=== PATIENT | male | born 1975 ===

== ENCOUNTER 2017-09-23 18:47 | Emergency (ER) | payer SELFPAY ==
[2017-09-23 20:49] LABS: Bilirubin,Urine NEG (Negative); Blood,Urine NEG (Negative); Color,Urine Yellow (Yellow); Mucus,Urine 3+ /HPF; Urobilinogen,Urine < 2.0 mg/dL (<2.0)
[2017-09-23 20:52] LABS: Basophils % (Auto) 0.4 % (0.0-1.8); Eosinophils % (Auto) 0.1 % (0.0-4.3); Hematocrit 44.3 % (35.5-45.6); Hemoglobin 14.2 gm/dl (11.8-15.2); Lymphocytes # (Auto) 0.7 K/mm3 (1.2-5.4); Lymphocytes % (Auto) 9.8 % (13.4-35.0); Mean Corpuscular HGB Conc 32 % (32-34); Mean Corpuscular Hemoglobin 27 pg (28-32); Mean Corpuscular Volume 84 fl (84-94); Monocytes # (Auto) 0.3 K/mm3 (0.0-0.8); Monocytes % (Auto) 4.8 % (0.0-7.3); Platelet Count 212 K/mm3 (140-440); Red Blood Count 5.31 M/mm3 (3.65-5.03); Red Cell Distribution Width 13.2 % (13.2-15.2)
[2017-09-23 20:53] LABS: Amphetamine Screen,Urine PRESUMPTIVE NEGATIVE; Benzodiazepines Screen,Urine PRESUMPTIVE NEGATIVE; Cannabinoid Screen,Urine PRESUMPTIVE NEGATIVE; Cocaine Screen,Urine PRESUMPTIVE NEGATIVE; Methadone Screen,Urine PRESUMPTIVE NEGATIVE; Opiate Screen,Urine PRESUMPTIVE NEGATIVE
[2017-09-23 20:59] LABS: Calcium 10.3 mg/dL (8.4-10.2)
--- NOTE | 2017-09-23 21:05 | Emergency Department Report ---
ED Psych HPI - General Chief Complaint: Psych Stated Complaint: PSYCH EVALUATION Time Seen by Provider: 09/23/17 20:13 Source: patient Mode of arrival: Ambulatory - History of Present Illness Initial Comments: Patient is a 42-year-old male who states he is having some disorganized thoughts and hearing voices. Patient states she is having command hallucinations telling him to harm himself as well as others. Patient states he feels that his life is stupid and he wishes he wasn't here. Patient is here for psychiatric evaluation. - Related Data Home Medications Medication Instructions Recorded Confirmed Last Taken Unobtainable 09/23/17 09/23/17 Unknown Allergies Allergy/AdvReac Type Severity Reaction Status Date / Time No Known Allergies Allergy Unverified 09/23/17 19:13 ED Review of Systems ROS: Stated complaint: PSYCH EVALUATION Other details as noted in HPI Comment: All other systems reviewed and negative ED Past Medical Hx - Past Medical History Previous Medical History?: Yes Hx Psychiatric Treatment: Yes - Social History Smoking Status: Never Smoker Substance Use Type: None - Medications Home Medications: Home Medications Medication Instructions Recorded Confirmed Last Taken Type Unobtainable 09/23/17 09/23/17 Unknown History ED Physical Exam - General Limitations: No Limitations General appearance: alert, in no apparent distress - Head Head exam: Present: atraumatic, normocephalic - Eye Eye exam: Present: normal appearance - ENT ENT exam: Present: mucous membranes moist - Neck Neck exam: Present: normal inspection - Respiratory Respiratory exam: Present: normal lung sounds bilaterally. Absent: respiratory distress - Cardiovascular Cardiovascular Exam: Present: regular rate, normal rhythm. Absent: systolic murmur, diastolic murmur, rubs, gallop - GI/Abdominal GI/Abdominal exam: Present: soft, normal bowel sounds - Rectal Rectal exam: Present: deferred - Extremities Exam Extremities exam: Present: normal inspection - Back Exam Back exam: Present: normal inspection - Neurological Exam Neurological exam: Present: alert, oriented X3 - Psychiatric Psychiatric exam: Present: normal affect, depressed - Skin Skin exam: Present: warm, dry, intact, normal color. Absent: rash ED Course Vital Signs 09/23/17 19:12 Temperature 97.6 F Pulse Rate 80 Respiratory 18 Rate Blood Pressure 126/66 [Left] O2 Sat by Pulse 100 Oximetry ED Medical Decision Making - Lab Data Result diagrams: 09/23/17 20:30 05/23/18 20:30 - Medical Decision Making Patient is medically clear for psych evaluation. Critical care attestation.: If time is entered above; I have spent that time in minutes in the direct care of this critically ill patient, excluding procedure time. ED Disposition Clinical Impression: Acute psychosis Disposition: [id number]/TX-65 PSY HOSP/PSY UNIT Is pt being admited?: No Does the pt Need Aspirin: No Condition: Stable Referrals: PRIMARY CARE, [Primary Care Provider] - 3-5 Days
[2017-09-24] MEDS ORDERED: GEODON IM PRN (04:17)
--- NOTE | 2017-09-24 14:36 | Consultation ---
History of Present Illness - Reason for Consult Consult date: 09/24/17 Reason for consult: Mental Health Evaluation Requesting physician: RONY TORRES - Chief Complaint Chief complaint: "I don't what is wrong with me" - History of Present Psychiatric Illness 42-year-old male presenting to the ER for acute psychosis. Today the patient is calm and cooperative, but disorganized during the assessment. The patient had to be redirected several time to keep him on topic. He stated that the voices are telling him "lots of things." He stated that he cannot think because the voices are overwhelming. He does not like taking antipsychotics, but will take Seroquel. He would not confirm or deny being suicidal when asked. He denies HI' s and VH's. He acknowledged erratic sleep, but denies a poor appetite. He denies recreational drug use and alcohol consumption (etoh). Medications and Allergies Allergies Allergy/AdvReac Type Severity Reaction Status Date / Time No Known Allergies Allergy Unverified 09/23/17 19:13 Home Medications Medication Instructions Recorded Confirmed Last Taken Type Unobtainable 09/23/17 09/23/17 Unknown History Active Meds: Active Medications Ziprasidone (Geodon) 20 mg IM Q6H PRN PRN Reason: Agitation Past psychiatric history - Past Medical History Past Medical History: No medical history Past Surgical History: No surgical history - past Psychiatric treatment and history psychiatric treatment history: Multiple inpatient psy services. Denies a fam psy hx. - Social History Social history: Lives alone Mental Status Exam - Vital signs Last Vital Signs Temp 97.6 F 09/23/17 19:12 Pulse 80 09/23/17 19:12 Resp 20 09/24/17 10:00 BP 126/66 09/23/17 19:12 Pulse Ox 98 09/24/17 10:00 - Exam Narrative exam: MSE: Appearance: calm Behavior: regular eye contact Speech: regular rate and tone Mood: "okay" Affect: normal Thought Process: disorganized Thought Content: denies HI's and VH's, he could not confirm or deny SI's Motor Activity: ambulatory Cognition: A/O x3 Insight: poor Judgment: poor Results Result Diagrams: 09/23/17 20:30 09/23/17 20:30 Abnormal lab results 09/23/17 09/23/17 09/23/17 Range/Units 20:30 20:30 20:30 RBC (3.65-5.03) M/mm3 MCH (28-32) pg Lymph % (Auto) (13.4-35.0) % Lymph # (1.2-5.4) K/mm3 Seg Neutrophils % (40.0-70.0) % BUN 23 H (9-20) mg/dL Glucose 128 H (75-100) mg/dL Calcium 10.3 H (8.4-10.2) mg/dL Salicylates < 0.3 L (2.8-20.0) mg/dL Acetaminophen < 5.0 L (10.0-30.0) ug/mL 09/23/17 Range/Units 20:30 RBC 5.31 H (3.65-5.03) M/mm3 MCH 27 L (28-32) pg Lymph % (Auto) 9.8 L (13.4-35.0) % Lymph # 0.7 L (1.2-5.4) K/mm3 Seg Neutrophils % 84.9 H (40.0-70.0) % BUN (9-20) mg/dL Glucose (75-100) mg/dL Calcium (8.4-10.2) mg/dL Salicylates (2.8-20.0) mg/dL Acetaminophen (10.0-30.0) ug/mL All other labs normal. Assessment and Plan Assessment and plan: Impression: Unspecified Psychosis. Today the patient is calm and cooperative, but disorganized during the assessment. The patient could not confirm or deny SI 's. DDx: R/O Bipolar DO, Schizoaffective DO, R/O Schizophrenia Recommendation/Plan: Continue 1013 with placement to inpatient psy services. Start Seroquel 200 mg PO HS for psychosis and Trazodone 50 mg PO HS PRN for sleep. Discussed possible metabolic side effects of Seroquel with patient. Discussed possible suicidality/medication induced abhishek/priapism with patient reference Trazodone.
[2017-09-24] MEDS ORDERED: DESYREL PO PRN (14:49)
--- NOTE | 2017-09-25 10:49 | Progress Note ---
Subjective - Reason for Consult Consult date: 09/25/17 Reason for consult: Psychiatry Follow-up - Chief Complaint Chief complaint: "Hello" 42-year-old male presenting to the ER for acute psychosis. Today the patient is calm and cooperative, but still disorganized during the assessment. His conversation wasn't lucid and he had to be redirected several time to keep him on topic. He did state that he got more sleep last night than the previous night. He still would not confirm or deny being suicidal. He stated that the voices are still active. He denies HI's and VH's. He denies any side effects of his medication. Mental Status Exam - Vital signs Last Vital Signs Temp 98.2 F 09/24/17 21:47 Pulse 94 H 09/24/17 21:47 Resp 14 09/24/17 21:47 BP 109/79 09/24/17 21:47 Pulse Ox 97 09/24/17 21:47 - Exam Narrative exam: MSE: Appearance: calm Behavior: regular eye contact Speech: regular rate and tone Mood: "okay" Affect: normal Thought Process: disorganized Thought Content: denies HI's and VH's, he could not confirm or deny SI's Motor Activity: ambulatory Cognition: A/O x3 Insight: poor Judgment: poor Assessment and Plan Impression: Unspecified Psychosis. Today the patient is calm and cooperative, but still disorganized during the assessment. The patient could not confirm or deny SI's. DDx: R/O Bipolar DO, Schizoaffective DO, R/O Schizophrenia Recommendation/Plan: Continue 1013 with placement to [facility] today. Continue Seroquel 200 mg PO HS for psychosis and continue Trazodone 50 mg PO HS PRN for sleep. Discussed possible metabolic side effects of Seroquel with patient. Discussed possible suicidality/medication induced abhishek/priapism with patient reference Trazodone.
[2017-09-25 12:13] VITALS: BP 118/89
[2017-09-25] MEDS ORDERED: HALDOL ONE (16:57)
[2017-09-25] MEDS ORDERED: HALDOL IM ONE (17:23)
== END 2017-09-25 23:07 ==
LOC: EEVIPCON 18:47 → ED 18:47
DX: F23 Brief psychotic disorder (principal)
CPT/HCPCS: 36415; 80048; 80307; 81001; 85025; 96372; 99285; G0480; J1630; 80320